=== PATIENT | female | born 2000 | race Asian ===

== ENCOUNTER 2019-08-30 20:29 | Emergency (ER) | payer OTHER ==
[~2019-08-30] VITALS: Ht 149.9 cm; Wt 52.6 kg
--- NOTE | 2019-08-30 20:35 | NUR ---
ED Nurse Note: ambulated to ed from home c/o lower abdominal pain. patient states she has been on period for 12 days. ao4. nad. vss. ambulates steady. resting in bed with no acute distress. states she was in urgent care earlier today and was told to go to er. hx of ovarian cyst 6 mo; did not follow up with primary md
--- NOTE | 2019-08-30 20:45 | NUR ---
ED Nurse Note: iv access established. blood and urine collected ;sent down to lab.
--- NOTE | 2019-08-30 21:03 | Emergency Room Report ---
History of Present Illness General Chief Complaint: Abdominal Pain Source: Patient Present Illness HPI Is a 18-year-old female with no past medical history. She presents with chief complaint of pelvic pain. Onset for a couple weeks. She is also on her menstruation for the last 12 days. She is from [place] and is here in [place] for rehab from cocaine abuse. She had sharp cramping pain. This is been ongoing for a couple weeks now. She went to urgent care today and had blood work, hormonal levels and urine test done. Urine was negative. was negative. She was told to come to the ER for ultrasound. Patient denies any trauma. No discharge. Denies any recent drug use. Last cocaine use was 15 days ago. Pain is 8 out of 10. Sharp and crampy. Allergies: Coded Allergies: No Known Allergies (Unverified , 08/30/19) Patient History Past Medical History: see triage record, old chart reviewed Past Surgical History: none Pertinent Family History: none Social History: Reports: drug use - Cocaine Last Menstrual Period: 08/18/19 Now: No : 0 Immunizations: other Reviewed Nursing Documentation: PMH: Agreed; PSxH: Agreed Nursing Documentation-PMH Past Medical History: No History, Except For Hx Cardiac Problems: No Hx Hypertension: No Hx Pacemaker: No Hx Asthma: No Hx COPD: No Hx Diabetes: No Hx Cancer: No Hx Gastrointestinal Problems: No Hx Dialysis: No History Of Psychiatric Problem: No Hx Neurological Problems: No Hx Cerebrovascular Accident: No Hx Seizures: No Review of Systems Eye: Denies: eye pain, blurred vision ENT: Denies: ear pain, nose congestion, throat swelling Respiratory: Denies: cough, shortness of breath Cardiovascular: Denies: chest pain, palpitations Gastrointestinal: Denies: abdominal pain, diarrhea, nausea, vomiting Genitourinary: Reports: pain, vag bleed/dc Musculoskeletal: Denies: back pain, joint pain Skin: Denies: rash Neurological: Denies: headache, numbness Endocrine: Denies: increased thirst, increased urine Hematologic/Lymphatic: Denies: easy bruising All Other Systems: negative except mentioned in HPI Physical Exam Vital Signs Date Time Temp Pulse Resp B/P (MAP) Pulse Ox O2 Delivery O2 Flow Rate FiO2 08/30/19 20:32 97.5 106 17 110/73 (85) 97 Room Air Vitals normal Sp02 EP Interpretation: reviewed, normal General Appearance: well appearing, no apparent distress, alert Head: normocephalic, atraumatic Eyes: bilateral eye PERRL, bilateral eye EOMI ENT: hearing grossly normal, normal pharynx Neck: full range of motion, supple, no meningismus Respiratory: chest non-tender, lungs clear, normal breath sounds Cardiovascular #1: regular rate, rhythm, no murmur Gastrointestinal: normal bowel sounds, no mass, no organomegaly, no bruit, non- distended, tenderness - Lower abdominal pain Musculoskeletal: back normal, normal range of motion, gait/station normal Psychiatric: mood/affect normal Medical Decision Making Diagnostic Impression: Primary Impression: Pelvic pain Additional Impression: Dysfunctional uterine bleeding ER Course Patient presents with pelvic pain. There is no evidence of any complex cyst that she mention from before. There is small follicles. No evidence of an acute abdomen. She is not . This is based on the urinalysis done at urgent care today. She had the report with her. No evidence of any torsion. No evidence of PID. Will discharge home. Last Vital Signs Date Time Temp Pulse Resp B/P (MAP) Pulse Ox O2 Delivery O2 Flow Rate FiO2 08/30/19 20:32 97.5 106 17 110/73 (85) 97 Room Air Status: improved Disposition: HOME, SELF-CARE Condition: Stable Scripts Ibuprofen* (MOTRIN*) 600 Mg Tablet 600 MG ORAL THREE TIMES A DAY, #30 TAB 0 Refills Prov: Sharan Mcghee MD 08/30/19 Additional Instructions: Follow-up with your doctor in 7 days. You may need to see a [employer] if continue with bleeding. Return if worse. Sharan Mcghee MD Aug 30, 2019 21:03
--- NOTE | 2019-08-30 21:14 | NUR ---
ED Nurse Note: patient medicated; tolerated well. states pain tolerable enough for transport. patient ambulated to us with us tech.
[2019-08-30] MEDS ORDERED: Ketorolac 30mg Inj IV ONE (21:15)
[2019-08-30 21:17] VITALS: BP 110/73
--- NOTE | 2019-08-30 21:54 | Diagnostic Imaging Report ---
EXAM: US Pelvis Complete, Transabdominal US Pelvis, Transvaginal CLINICAL HISTORY: PAIN TECHNIQUE: Real-time transabdominal and transvaginal pelvic ultrasound (complete) with image documentation. Transvaginal imaging was used for better evaluation of the endometrium and adnexa. COMPARISON: No relevant prior studies available. FINDINGS: Uterus/cervix: Uterus measures 4.7 x 2.7 x 4.5 cm. Endometrium measures 2.9 cm. Right ovary: Right ovary measures 2.8 x 3.4 x 1.0 cm. No complex lesion. Left ovary: Left ovary measures 2.0 x 2.11 cm. No complex lesion. Free fluid: Small amount of fluid in the pelvis. Other findings: Assuming a negative test. Correlate. IMPRESSION: No adnexal mass lesions.
[2019-08-30] MEDS ORDERED: IBUPROFEN600 MG ORAL (22:04)
[2019-08-30 22:15] VITALS: BP 110/73
--- NOTE | 2019-08-30 22:15 | NUR ---
ER DISCHARGE NOTE: Patient is cleared to be discharged per ERMD, pt is aox4, on room air, with stable vital signs. pt was given dc and prescription instructions, pt was able to verbalize understanding, pt id band and iv site removed without complications. pt is able to ambulate with steady gait. pt took all belongings.
== END 2019-08-30 22:15 | disposition home or self-care (01) ==
LOC: EMR 21:57
DX: N93.8 Other specified abnormal uterine and vaginal bleeding (principal); R10.2 Pelvic and perineal pain; F14.90 Cocaine use, unspecified, uncomplicated
CPT/HCPCS: 76830; 76856; 80307; 96374; 99284; J1885